=== PATIENT | female | born 1990 | race Two or more races ===

== ENCOUNTER 2021-02-17 20:36 | Emergency (ER) | payer BC ==
[~2021-02-17] VITALS: Ht 165.1 cm; Wt 75.3 kg
[2021-02-17 23:36] VITALS: BP 131/72
== END 2021-02-17 23:38 | disposition home or self-care (01) ==
LOC: ER 20:46
DX: N93.9 Abnormal uterine and vaginal bleeding, unspecified (principal)
CPT/HCPCS: 36415; 84702